=== PATIENT | male | born 1995 | race Caucasian/White ===

== ENCOUNTER 2020-04-05 15:08 | Emergency (ER) | payer OTHER ==
[~2020-04-05] VITALS: Ht 175.3 cm; Wt 83.5 kg
--- NOTE | 2020-04-05 15:22 | NUR ---
[facility] BY TO ER BED 14. HERE FOR NAUSEA AND VOMITING EVAL. STABLE VITALS. AWAITING MD MUIR.
--- NOTE | 2020-04-05 15:28 | NUR ---
DR BANUELOS AT BEDSIDE FOR EVAL.
[2020-04-05] MEDS ORDERED: ONDANSETRON HCL/PF 4 MG/2 ML VIAL ONE ×2 (16:20→16:48)
[2020-04-05] MEDS ORDERED: LORAZEPAM INJ 2 MG/ML VIAL ONE (16:20)
[2020-04-05] MEDS: IV NS 0.9% 1,000 ML IV ONE (16:41)
[2020-04-05] MEDS: LORAZEPAM INJ 2 MG/ML VIAL IV ONE (16:42)
[2020-04-05] MEDS: ONDANSETRON HCL/PF 4 MG/2 ML VIAL IV ONE (16:47)
--- NOTE | 2020-04-05 17:38 | NUR ---
PT IS MIDICALLY CLEARED. DISCHARGE TO [facility] IN STABLE CONDITION. IVHL DISCONTINUED. NO BLEEDING NOTED.
[2020-04-05 17:40] VITALS: BP 132/88
== END 2020-04-05 17:42 ==
LOC: ER 15:20
DX: F11.23 Opioid dependence with withdrawal (principal); R11.2 Nausea with vomiting, unspecified; Z59.0 Homelessness
CPT/HCPCS: 96361; 96374; 96375; 99284; J2060; J2405 ×2; J7030

== ENCOUNTER 2020-04-13 12:39 | Emergency (ER) | payer OTHER, MEDICAID ==
[~2020-04-13] VITALS: Ht 180.3 cm; Wt 79.4 kg
[2020-04-13 12:44] VITALS: BP 133/80
== END 2020-04-13 13:12 ==
LOC: ER 12:41
DX: R53.1 Weakness (principal); Z02.89 Encounter for other administrative examinations; Z59.0 Homelessness

== ENCOUNTER 2020-12-14 19:31 | Emergency (ER) | payer MEDICAID, OTHER ==
[~2020-12-14] VITALS: Ht 175.3 cm; Wt 90.7 kg
[2020-12-14 19:31] VITALS: BP 129/72
[2020-12-14] MEDS ORDERED: CLOT15CR5 TP (20:04)
[2020-12-14] MEDS ORDERED: MUPI22OI7 MC (20:04)
[2020-12-14] MEDS ORDERED: CEPH500C2 PO (20:04)
[2020-12-14] MEDS ORDERED: SULF1TAB48 PO (20:04)
--- NOTE | 2020-12-14 20:12 | NUR ---
Patient discharged to home in stable condition. Written and verbal after care instructions given. Patient verbalizes understanding of instruction. Pt ambulatory with a steady gait
== END 2020-12-14 20:13 | disposition home or self-care (01) ==
LOC: ER 19:38
DX: A49.1 Streptococcal infection, unspecified site (principal); B35.3 Tinea pedis; F10.10 Alcohol abuse, uncomplicated; F17.200 Nicotine dependence, unspecified, uncomplicated; Y90.9 Presence of alcohol in blood, level not specified; Z59.0 Homelessness

== ENCOUNTER 2020-12-28 17:53 | Emergency (ER) | payer OTHER ==
[~2020-12-28] VITALS: Ht 165.1 cm; Wt 68.0 kg
[~2020-12-28 17:53] MED LIST: CEPH500C2 PO; CLOT15CR5 TP; MUPI22OI7 MC; SULF1TAB48 PO
[2020-12-28] MEDS ORDERED: CEPH500C2 PO (18:10)
[2020-12-28] MEDS ORDERED: MUPI22OI7 MC (18:10)
--- NOTE | 2020-12-28 18:15 | NUR ---
The patient is alert and oriented x4. "Redness/swelling on left side of face xcouple days". Denies pain. Will continue to monitor the patient.
[2020-12-28] MEDS ORDERED: CEPHALEXIN MONOHYDRATE 500 MG CAPSULE PO ONE ×2 (18:27→18:30)
--- NOTE | 2020-12-28 18:33 | NUR ---
The patient is alert and oriented x4. Patient discharged to home in stable condition. Written and verbal after care instructions given. Patient verbalizes understanding of instruction.
[2020-12-28 18:34] VITALS: BP 143/87
== END 2020-12-28 18:34 | disposition home or self-care (01) ==
LOC: ER 17:55
DX: S00.83XA Contusion of other part of head, initial encounter (principal); L08.9 Local infection of the skin and subcutaneous tissue, unspecified; F17.200 Nicotine dependence, unspecified, uncomplicated; Z59.0 Homelessness; Z79.899 Other long term (current) drug therapy; V19.88XA Pedal cyclist (driver) (passenger) injured in other specified transport accidents, initial encounter; Y93.89 Activity, other specified; Y92.89 Other specified places as the place of occurrence of the external cause; Y99.8 Other external cause status